=== PATIENT | female | born 2000 | race Caucasian/White ===

== ENCOUNTER 2023-10-12 23:46 | Observation (INO) | payer OTHER ==
[~2023-10-12] VITALS: Ht 167.6 cm; Wt 111.6 kg
[2023-10-13 00:01] VITALS: BP 137/84; PULSE 92; RESP 18; TEMP 99.2
[2023-10-13] MEDS ORDERED: PRETAB PO (01:07)
== END 2023-10-13 01:30 | disposition home or self-care (01) ==
LOC: MLD 23:46
PROVIDERS: ADMIT Obstetrics & Gynecology; ATTEND Obstetrics & Gynecology
DX: O42.92 Full-term premature rupture of membranes, unspecified as to length of time between rupture and onset of labor (principal); Z3A.38 38 weeks gestation of pregnancy
CPT/HCPCS: 81000; G0378